=== PATIENT | male | born 1935 | race Caucasian/White ===

== ENCOUNTER 2019-02-03 09:44 | Emergency (ER) | payer MEDICARE, OTHER ==
[~2019-02-03] VITALS: Ht 170.2 cm; Wt 68.0 kg
[~2019-02-03 09:44] MED LIST: AMIO200T42 HOMEMEDPO; AMIO200T42 PO; ASPI-496 HOMEMEDPO; BENA1TAB10 PO; BENA40TA3 HOMEMEDPO; BIMA2.5D EACHEYE; BRIM5DRO2 EACHEYE; CALC200T3 HOMEMEDPO; DOCU-131 HOMEMEDPO; ESCI10TA10 PO; HYDR12.517 HOMEMEDPO; METO10TA82 HOMEMEDPO; METO25TA35 HOMEMEDPO; METO25TA35 PO; TAMS-11 PO; VICODIN PO
--- NOTE | 2019-02-03 10:15 | NUR ---
PT. IS A & O X 4 WITH C/O CONSTIPATION X 3 DAYS. PT. STATES HE TOOK DULCOLAX AND IT IS HELPING HIM. PT.'S ABD. IS SOFT AND ROUND WITH BS + X 4 QUADS. PT. IS PINK, WARM AND DRY. LUNGS ARE CTA. MM ARE MOIST WITH PULSES +2 THROUGHOUT. PT. IS RESTING WITH THE HOB ELEVATED AND THE SIDERAILS REMAIN UP X 2 WITH THE CALL LIGHT IN PLACE.
[2019-02-03 10:40] LABS: BASOPHILS % (AUTO) 0 % (0-1); EOSINOPHILS # (AUTO) 0.01 x10^3/uL (0-0.4); EOSINOPHILS % (AUTO) 0 % (1-7); LYMPHOCYTES # (AUTO) 2.48 x10^3/uL (1-3.4); LYMPHOCYTES % (AUTO) 29 % (22-44); MD NO; MEAN CORPUSCULAR HEMOGLOBIN 31.5 pg (27.5-34.5); MEAN CORPUSCULAR HGB CONC 33.8 g/dL (33.2-36.2); MEAN CORPUSCULAR VOLUME 93.3 fL (81-97); MEAN PLATELET VOLUME 8.2 fL (7.4-10.4); MONOCYTES # (AUTO) 0.38 x10^3/uL (0.2-0.8); MONOCYTES % (AUTO) 4 % (2-9); NEUTROPHILS # (AUTO) 5.68 x10^3/uL (1.8-6.8); NEUTROPHILS % (AUTO) 66 % (42-75); PLATELET COUNT 161 x10^3/uL (130-400); RED BLOOD COUNT 5.26 x10^6/uL (4.38-5.82); RED CELL DISTRIBUTION WIDTH 13.3 % (9.4-14.8)
[2019-02-03 10:50] LABS: ALANINE AMINOTRANSFERASE 26 U/L (12-78); ALBUMIN 3.7 g/dL (3.4-5.0); ANION GAP 7 mmol/L (5-15); CALCIUM 8.4 mg/dL (8.5-10.1); CHLORIDE 106 mmol/L (98-107); CREATININE 0.92 mg/dL (0.7-1.3)
[2019-02-03 10:53] LABS: ALKALINE PHOSPHATASE 66 U/L (45-117); BILIRUBIN,TOTAL 0.8 mg/dL (0.2-1.0); TOTAL PROTEIN 6.6 g/dL (6.4-8.2)
--- NOTE | 2019-02-03 11:11 | NUR ---
PT. IS RESTING WITHOUT CONCERNS. NO CHANGES AT THIS TIME.
--- NOTE | 2019-02-03 12:06 | NUR ---
PT. WAS GIVEN DISCHARGE INSTRUCTIONS WITH UNDERSTANDING VERBALIZED ALONG WITH WILLINGNESS TO COMPLY. PT. WAS AMBULATORY WITH A STEADY GAIT TO DISCHARGE. VSS.
[2019-02-03 12:14] VITALS: BP 131/79
== END 2019-02-03 12:18 | disposition home or self-care (01) ==
LOC: ED 12:02
DX: K59.00 Constipation, unspecified (principal); I10 Essential (primary) hypertension
CPT/HCPCS: 36415; 74021; 80053; 85025; 99283; 99284

== ENCOUNTER 2019-07-02 10:52 | Emergency (ER) | payer MEDICARE, OTHER ==
[~2019-07-02] VITALS: Ht 172.7 cm; Wt 58.0 kg
[~2019-07-02 10:52] MED LIST changes: +AMLO-150 PO; +AMLO10TA8 PO; +ESCI10TA PO; +ESZO3TAB28 PO; +LORA-446 PO; +POTA20TA6 PO; +TRAM50TA2 PO; +TRIA0.2576 PO
--- NOTE | 2019-07-02 11:15 | NUR ---
Patient ambulatory to room, slow steady gait. at bedside. Patient is uncomfortable and reports pain is unbearable causing him to not wantt o wake up. His is tearful. Reprots pain was controlled up until May after his surgery for SBO. Has an appointment on Friday with primary care.
[2019-07-02] MEDS ORDERED: SODIUM CHLORIDE FLUSH 10ML SYR IVF ONE (12:00)
[2019-07-02] MEDS ORDERED: KETOROLAC 30 MG/1 ML IVPush ONE (12:00)
[2019-07-02] MEDS ORDERED: DICYCLOMINE 10 MG/ML, 2ML IM ONE (12:00)
[2019-07-02] MEDS ORDERED: SODIUM CHLORIDE 0.9% 1,000ML IVBOLUS ONE (12:00)
[2019-07-02] MEDS ORDERED: KETOROLAC 30 MG/1 ML ONE (12:07)
[2019-07-02] MEDS ORDERED: DICYCLOMINE 10 MG/ML, 2ML ONE (12:07)
[2019-07-02 12:09] LABS: BASOPHILS # (AUTO) 0.03 x10^3/uL (0-0.1); BASOPHILS % (AUTO) 0 % (0-1); EOSINOPHILS # (AUTO) 0.03 x10^3/uL (0-0.4); EOSINOPHILS % (AUTO) 0 % (1-7); LYMPHOCYTES % (AUTO) 41 % (22-44); MD NO; MEAN CORPUSCULAR HEMOGLOBIN 31.5 pg (27.5-34.5); MEAN CORPUSCULAR HGB CONC 33.7 g/dL (33.2-36.2); MEAN CORPUSCULAR VOLUME 93.5 fL (81-97); MEAN PLATELET VOLUME 7.7 fL (7.4-10.4); MONOCYTES # (AUTO) 0.28 x10^3/uL (0.2-0.8); MONOCYTES % (AUTO) 4 % (2-9); NEUTROPHILS # (AUTO) 4.23 x10^3/uL (1.8-6.8); NEUTROPHILS % (AUTO) 55 % (42-75); PLATELET COUNT 238 x10^3/uL (130-400); RED BLOOD COUNT 4.99 x10^6/uL (4.38-5.82)
[2019-07-02 12:16] LABS: HCT (SEDRATE) 46.6 % (39.2-51.8)
[2019-07-02 12:22] LABS: ALANINE AMINOTRANSFERASE 18 U/L (12-78); ALBUMIN 3.6 g/dL (3.4-5.0); ANION GAP 6 mmol/L (5-15); CALCIUM 8.4 mg/dL (8.5-10.1); CHLORIDE 106 mmol/L (98-107); CREATININE 0.81 mg/dL (0.7-1.3)
[2019-07-02 12:27] LABS: ALKALINE PHOSPHATASE 60 U/L (45-117); BILIRUBIN,TOTAL 0.6 mg/dL (0.2-1.0); TOTAL PROTEIN 6.7 g/dL (6.4-8.2); TROPONIN I < 0.015 ng/mL (0.000-0.045)
--- NOTE | 2019-07-02 13:00 | NUR ---
pATIENT REPORTS FEELING ONLY A SMALL IMPROVEMENT WITH THE MEDICATION. IV INFUSING
[2019-07-02 13:39] LABS: MICROSCOPIC INDICATED
--- NOTE | 2019-07-02 13:43 | NUR ---
Patient discharged home, discharge instructions provided all questions and concerns addressed. IV dc'd cath intact. Discussed dietary intake to include the use of baby food and lactaid for milkshakes as tolerated by the patients. All patients belongings left with patient. NAD RR even and unlabored. Patient reports the pain has decreased especially in his abdomin. Ambulatory with steady gait.
[2019-07-02 13:45] VITALS: BP 149/71
[2019-07-02 13:47] LABS: CULTURE INDICATED? YES
== END 2019-07-02 13:47 | disposition home or self-care (01) ==
LOC: ED 12:17
DX: G89.29 Other chronic pain (principal); R10.84 Generalized abdominal pain; E78.5 Hyperlipidemia, unspecified; I10 Essential (primary) hypertension; Z85.46 Personal history of malignant neoplasm of prostate; R19.7 Diarrhea, unspecified
CPT/HCPCS: 36415; 74022; 80053; 81001; 83605; 83690; 83735; 84443; 84484; 85025; 85651; 87077; 87086; 87186; 93005; 96361; 96372; 96374; 99284; J0500; J1885; J7030

== ENCOUNTER 2019-07-11 13:06 | Inpatient (IN) | payer MEDICARE, OTHER ==
[~2019-07-11] VITALS: Ht 172.7 cm; Wt 61.3 kg
--- NOTE | 2019-07-11 13:45 | NUR ---
RN WENT INTO ROOM TO ASSESS PATIENT. PT SLEEPING ON GURNEY. RN TALKED TO AND ASKED WHAT HAPPENED TODAY. 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 STATED "I THINK HE DID THIS ON PURPOSE." RN ASSESSED PATIENT FOR SA. RN ASKED PT WHY HE TOOK ALL OF THOSE MEDICATIONS AT ONE TIME PT STATED "I JUST WANTED IT TO BE OVER WITH." RN ASKED PATIENT IF HE TRIED TO COMMIT SUICIDE PATIENT ADMITTED THAT IT WAS A SUICIDE ATTEMPT. RN INFORMED CHARGE NURSE AND MD. MD AND RN WENT INTO ROOM. MD ASSESSED PATIENT FOR SA. PT ADMITTED TO MD THAT HE TRIED TO COMMIT SUICIDE. MD TO INITIATE A LEGAL HOLD. POC WAS DISCUSSED WITH AND PT. PT STILL LETHARGIC FROM MEDICATIONS. RN TO MOVE PATIENT INTO A SI ROOM. PT'S PERSONAL BELONGINGS TO BE COLLECTED. SITTER TO BE REQUEST.
--- NOTE | 2019-07-11 14:03 | NUR ---
PERSONAL BELONGINGS COLLECTED AND PROVIDED TO . CREPING MACHINE OPERATOR REQUESTED FOR A SITTER.
[2019-07-11 14:08] LABS: BASOPHILS # (AUTO) 0.03 x10^3/uL (0-0.1); BASOPHILS % (AUTO) 0 % (0-1); EOSINOPHILS # (AUTO) 0.05 x10^3/uL (0-0.4); EOSINOPHILS % (AUTO) 1 % (1-7); LYMPHOCYTES % (AUTO) 41 % (22-44); MD NO; MEAN CORPUSCULAR HEMOGLOBIN 30.9 pg (27.5-34.5); MEAN CORPUSCULAR VOLUME 93.6 fL (81-97); MEAN PLATELET VOLUME 7.1 fL (7.4-10.4); MONOCYTES # (AUTO) 0.44 x10^3/uL (0.2-0.8); MONOCYTES % (AUTO) 6 % (2-9); NEUTROPHILS # (AUTO) 3.59 x10^3/uL (1.8-6.8); NEUTROPHILS % (AUTO) 52 % (42-75); PLATELET COUNT 181 x10^3/uL (130-400); RED BLOOD COUNT 4.78 x10^6/uL (4.38-5.82); RED CELL DISTRIBUTION WIDTH 12.9 % (9.4-14.8)
--- NOTE | 2019-07-11 14:11 | NUR ---
PT MOVED TO ROOM 1 VIA GURNEY. SUICIDE PRECAUTIONS IMPLEMENTED. POC WAS DISCUSSED WITH . VERBALIZED UNDERSTANDING.
[2019-07-11 14:18] LABS: ALBUMIN 3.2 g/dL (3.4-5.0); ANION GAP 6 mmol/L (5-15); CALCIUM 8.3 mg/dL (8.5-10.1); CHLORIDE 99 mmol/L (98-107)
[2019-07-11 14:22] LABS: ALANINE AMINOTRANSFERASE 15 U/L (12-78); ALKALINE PHOSPHATASE 53 U/L (45-117); BILIRUBIN,TOTAL 0.7 mg/dL (0.2-1.0); CREATININE 0.78 mg/dL (0.7-1.3)
[2019-07-11 14:26] LABS: SALICYLATE LEVEL < 1.7 mg/dL (2.8-20.0)
--- NOTE | 2019-07-11 15:07 | NUR ---
SITTER OUTSIDE OF BEDSIDE MONITORING PT.
[2019-07-11] MEDS ORDERED: SODIUM CHLORIDE FLUSH 10ML SYR IVF ONE (16:00)
--- NOTE | 2019-07-11 16:12 | NUR ---
PIV ACCESS OBTAINED, 22 R FA. URINE SAMPLE OBTAINED BY SC PER ERMD ORDERS. PT SELF CATH'S SELF 4X DAILY. 16FR NEEDED PER 'S REPORT.
--- NOTE | 2019-07-11 16:26 | NUR ---
TP RN: MESSAGE LEFT PER ERP REQUESTING FOUNDRY MELT SUPERVISOR CONSULT FOR THIS PT.
[2019-07-11 16:30] LABS: AMPHETAMINE SCREEN, URINE Negative (Negative); BARBITURATE SCREEN, URINE Negative (Negative); BENZODIAZEPINE SCREEN, URINE Positive (Negative); CANNABINOID SCREEN, URINE Negative (Negative); COCAINE SCREEN, URINE Negative (Negative); METHADONE SCREEN, URINE Negative (Negative); OPIATE SCREEN, URINE Positive (Negative)
[2019-07-11] MEDS ORDERED: ACETAMINOPHEN 325 MG TABLET PO PRN (16:30)
--- NOTE | 2019-07-11 16:34 | NUR ---
REPORT TO KOBE HANSEN. ROOM NOT CLEANED. TYRONE TO CALL WHEN ROOM IS CLEANED.
[2019-07-11] MEDS ORDERED: ENOXAPARIN 40 MG/0.4 ML ONE (16:53)
[2019-07-11] MEDS: SODIUM CHLORIDE 0.9% 1,000 ML IV SCH (16:56)
[2019-07-11] MEDS: ENOXAPARIN 40 MG/0.4 ML SQ SCH (16:56)
[2019-07-11] MEDS ORDERED: OXYcodone/APAP 5/325MG TABLET ONE (17:02)
[2019-07-11] MEDS: OXYcodone/APAP 5/325MG TABLET PO PRN (17:03)
--- NOTE | 2019-07-11 17:05 | NUR ---
MEDICATION ADMINISTERED PER EMAR FOR 04/08 ABD PAIN. PT ABLE TO SWALLOW WATER AND PILL WHOLE WITHOUT ANY DIFFITCULTY. AWAITING ROOM TO BE READY. RN OFFERED PT FOOD BUT PT STATED HE "IS NOT HUNGRY" AT THIS TIME. RN TO CONTINUE TO MONITOR.
--- NOTE | 2019-07-11 17:31 | NUR ---
PT ASLEEP ON GURNEY AFTER ADMINISTRATION OF PERCOCET FOR ABD PAIN. RR EVEN AND UNLABORED.
--- NOTE | 2019-07-11 17:42 | NUR ---
RN WENT TO ASSESS PIV WITH FLUIDS RUNNING. RN NOTICED THAT PIV HAS INFILTRATED. RN REMOVED IV WITH TIP INTACT. RN APPLIED PRESSURE AND WRAPPED R ARM WITH A WARM BLANKET. RN ENCOURAGED PT TO ELEVATE ON. RN ESTABLISHED A NEW PIV, 22 L FA. FLUIDS RUNNING PER EMAR.
[2019-07-11 19:59] VITALS: BP 129/74
[2019-07-11 20:39] VITALS: BP 129/74
[2019-07-11] MEDS ORDERED: TEMPLATE NON-FORMULARY MED. (Brimonidine Tartrate/Timolol (Combigan Eye Drops) 1 DROP) EACHEYE SCH (21:00)
[2019-07-11] MEDS: DOCUSATE 100 MG CAPSULE PO SCH (21:10)
[2019-07-11] MEDS: ZOLPIDEM 5MG TABLET PO SCH (21:10)
[2019-07-11] MEDS: LATANOPROST OPHTH 0.005%, 2.5ML EACHEYE SCH (21:14)
[2019-07-11] MEDS: BRIMONIDINE TART. OPHTH 0.2%, 5ML OP SCH (21:15)
[2019-07-11] MEDS: TIMOLOL OPHTH 0.5%, 5ML OP SCH (21:15)
[2019-07-11] MEDS: morphine SULFATE 10 MG/ML, 1ML IVPush PRN (21:15)
[2019-07-12] MEDS: OXYcodone/APAP 5/325MG TABLET PO PRN ×3 (01:36→23:37)
[2019-07-12] MEDS: SODIUM CHLORIDE 0.9% 1,000 ML IV SCH ×3 (01:38→21:46)
[2019-07-12 01:42] VITALS: BP 120/77
[2019-07-12 04:41] LABS: BASOPHILS # (AUTO) 0.02 x10^3/uL (0-0.1); BASOPHILS % (AUTO) 0 % (0-1); EOSINOPHILS # (AUTO) 0.06 x10^3/uL (0-0.4); EOSINOPHILS % (AUTO) 1 % (1-7); LYMPHOCYTES # (AUTO) 2.32 x10^3/uL (1-3.4); LYMPHOCYTES % (AUTO) 32 % (22-44); MD NO; MEAN CORPUSCULAR HEMOGLOBIN 31.4 pg (27.5-34.5); MEAN CORPUSCULAR HGB CONC 33.4 g/dL (33.2-36.2); MEAN PLATELET VOLUME 7.6 fL (7.4-10.4); MONOCYTES # (AUTO) 0.45 x10^3/uL (0.2-0.8); MONOCYTES % (AUTO) 6 % (2-9); NEUTROPHILS # (AUTO) 4.31 x10^3/uL (1.8-6.8); NEUTROPHILS % (AUTO) 60 % (42-75); PLATELET COUNT 170 x10^3/uL (130-400); RED BLOOD COUNT 4.63 x10^6/uL (4.38-5.82); RED CELL DISTRIBUTION WIDTH 13.2 % (9.4-14.8)
[2019-07-12 04:51] LABS: ANION GAP 5 mmol/L (5-15); CALCIUM 7.9 mg/dL (8.5-10.1); CHLORIDE 103 mmol/L (98-107)
[2019-07-12 04:53] LABS: CREATININE 0.66 mg/dL (0.7-1.3)
[2019-07-12] MEDS: morphine SULFATE 10 MG/ML, 1ML IVPush PRN (06:34)
[2019-07-12 06:58] VITALS: BP 145/74
[2019-07-12] MEDS ORDERED: KETOROLAC 30 MG/1 ML IVPush ONE (10:30)
[2019-07-12] MEDS: AMLODIPINE 10 MG TAB PO SCH (10:53)
[2019-07-12] MEDS: ESCITALOPRAM 10MG TABLET PO SCH (10:53)
[2019-07-12] MEDS: DOCUSATE 100 MG CAPSULE PO SCH ×2 (10:53→20:14)
[2019-07-12] MEDS: TAMSULOSIN 0.4 MG CAP.ER.24H PO SCH (10:53)
[2019-07-12] MEDS: POLYETHYLENE GLYCOL 17 GM PACKET NG SCH (10:54)
[2019-07-12] MEDS: BENAZEPRIL 20 MG TABLET PO SCH (10:54)
[2019-07-12] MEDS: HYDROCHLOROTHIAZIDE 12.5 MG CAPSULE PO SCH (10:54)
[2019-07-12] MEDS: BRIMONIDINE TART. OPHTH 0.2%, 5ML OP SCH ×2 (10:58→20:14)
[2019-07-12] MEDS: TIMOLOL OPHTH 0.5%, 5ML OP SCH ×2 (10:58→20:14)
[2019-07-12 12:32] VITALS: BP 152/69
[2019-07-12] MEDS: ENOXAPARIN 40 MG/0.4 ML SQ SCH (16:30)
[2019-07-12 19:48] VITALS: BP 116/67
[2019-07-12] MEDS: LATANOPROST OPHTH 0.005%, 2.5ML EACHEYE SCH (20:14)
[2019-07-12] MEDS: ZOLPIDEM 5MG TABLET PO SCH (20:14)
[2019-07-13 03:01] VITALS: BP 121/69
[2019-07-13] MEDS: OXYcodone/APAP 5/325MG TABLET PO PRN ×2 (04:58→12:17)
[2019-07-13 05:11] LABS: ANION GAP 6 mmol/L (5-15); CHLORIDE 105 mmol/L (98-107); CREATININE 0.54 mg/dL (0.7-1.3)
[2019-07-13] MEDS: SODIUM CHLORIDE 0.9% 1,000 ML IV SCH (06:38)
[2019-07-13 07:03] VITALS: BP 134/82
[2019-07-13] MEDS: POLYETHYLENE GLYCOL 17 GM PACKET NG SCH (09:34)
[2019-07-13] MEDS: BENAZEPRIL 20 MG TABLET PO SCH (09:35)
[2019-07-13] MEDS: AMLODIPINE 10 MG TAB PO SCH (09:35)
[2019-07-13] MEDS: TAMSULOSIN 0.4 MG CAP.ER.24H PO SCH (09:35)
[2019-07-13] MEDS: HYDROCHLOROTHIAZIDE 12.5 MG CAPSULE PO SCH (09:35)
[2019-07-13] MEDS: DOCUSATE 100 MG CAPSULE PO SCH (09:35)
[2019-07-13] MEDS: ESCITALOPRAM 10MG TABLET PO SCH (09:36)
[2019-07-13] MEDS: BRIMONIDINE TART. OPHTH 0.2%, 5ML OP SCH (09:36)
[2019-07-13] MEDS: TIMOLOL OPHTH 0.5%, 5ML OP SCH (09:37)
[2019-07-13] MEDS ORDERED: LACTULOSE 10 GM/15 ML UDC PO PRN (10:30)
[2019-07-13] MEDS ORDERED: POTASSIUM CHLORIDE 20 MEQ TAB.ER.PRT PO SCH (11:00)
[2019-07-13 12:42] VITALS: BP 120/72
[2019-07-13] MEDS ORDERED: DOCU100C33 PO (16:52)
[2019-07-13] MEDS ORDERED: POLY17PO5 NG (16:52)
[2019-07-13] MEDS ORDERED: OXYcodone/APAP 5/325MG PO (16:52)
[2019-07-13] MEDS ORDERED: LACT10SO24 PO (16:52)
== END 2019-07-13 17:09 | disposition home or self-care (01) | DRG 917 ==
LOC: ED 14:04 → EDIP 15:57 → 4NW 17:54
PROVIDERS: ADMIT Internal Medicine Infectious Disease; ATTEND Hospitalist
DX: T50.912A Poisoning by multiple unspecified drugs, medicaments and biological substances, intentional self-harm, initial encounter (principal); E43 Unspecified severe protein-calorie malnutrition; R45.851 Suicidal ideations; C91.11 Chronic lymphocytic leukemia of B-cell type in remission; F33.2 Major depressive disorder, recurrent severe without psychotic features; G89.29 Other chronic pain; E87.6 Hypokalemia; N40.0 Benign prostatic hyperplasia without lower urinary tract symptoms; I10 Essential (primary) hypertension; F41.9 Anxiety disorder, unspecified; I48.0 Paroxysmal atrial fibrillation; Z66 Do not resuscitate; Z68.20 Body mass index [BMI] 20.0-20.9, adult; Z85.46 Personal history of malignant neoplasm of prostate
CPT/HCPCS: 36415; 70450; 74018; 80048; 80053; 80307; 82533; 85025; 93005; G0378; J1650; J1885; J2270; J7030

== ENCOUNTER 2019-07-13 13:17 | Inpatient (IN) | payer MEDICARE, OTHER ==
[~2019-07-13] VITALS: Ht 175.3 cm; Wt 61.1 kg
[2019-07-13] MEDS ORDERED: ONDANSETRON ODT 4 MG PO PRN (14:00)
[2019-07-13] MEDS ORDERED: BISACODYL 10 MG SUPP PR PRN (14:00)
[2019-07-13] MEDS ORDERED: LACT10SO24 PO (16:52)
[2019-07-13] MEDS ORDERED: OXYcodone/APAP 5/325MG PO (16:52)
[2019-07-13] MEDS ORDERED: POLY17PO5 NG (16:52)
[2019-07-13] MEDS ORDERED: DOCU100C33 PO (16:52)
[2019-07-13] MEDS ORDERED: PLEASE ENTER HEIGHT AND WEIGHT MC SCH (17:30)
[2019-07-13 18:45] VITALS: BP 109/67
[2019-07-13 19:31] VITALS: BP 131/73
[2019-07-13] MEDS ORDERED: ZOLPIDEM 10MG TABLET PO PRN (20:30)
[2019-07-13] MEDS ORDERED: ZOLPIDEM 5MG TABLET ONE (20:42)
[2019-07-13] MEDS: ACETAMINOPHEN 325 MG TABLET PO PRN (21:50)
[2019-07-14] MEDS: ACETAMINOPHEN 325 MG TABLET PO PRN ×2 (05:09→21:42)
[2019-07-14 07:38] VITALS: BP 114/74
[2019-07-14] MEDS: DOCUSATE 100 MG CAPSULE PO PRN (08:26)
[2019-07-14] MEDS: POLYETHYLENE GLYCOL 17 GM PACKET PO PRN (08:26)
[2019-07-14 13:08] LABS: FREE T4 (FREE THYROXINE) 1.4 ng/dL (0.76-1.46); LDL/HDL RATIO 2.3 (0.5-3.0)
[2019-07-14] MEDS: PSYLLIUM PACKET PO SCH (14:35)
[2019-07-14] MEDS: LACTOBACILLUS 1GM/ PACKET PO SCH ×2 (17:53→21:42)
[2019-07-14 19:22] VITALS: BP 141/74
[2019-07-14] MEDS: ESCITALOPRAM 10MG TABLET PO SCH (21:42)
[2019-07-15] MEDS: ACETAMINOPHEN 325 MG TABLET PO PRN (04:49)
[2019-07-15 07:28] VITALS: BP 128/75
[2019-07-15] MEDS: POLYETHYLENE GLYCOL 17 GM PACKET PO PRN (08:17)
[2019-07-15] MEDS: LACTOBACILLUS 1GM/ PACKET PO SCH ×3 (08:17→21:32)
[2019-07-15] MEDS: PSYLLIUM PACKET PO SCH (08:17)
[2019-07-15] MEDS: DOCUSATE 100 MG CAPSULE PO PRN (08:18)
[2019-07-15] MEDS ORDERED: TIMO5TAB EACHEYE (11:13)
[2019-07-15] MEDS: BRIMONIDINE TART. OPHTH 0.2%, 5ML EACHEYE SCH ×2 (11:38→21:28)
[2019-07-15 19:40] VITALS: BP 118/70
[2019-07-15] MEDS: LATANOPROST OPHTH 0.005%, 2.5ML EACHEYE SCH (21:28)
[2019-07-15] MEDS: [UNRECOGNIZED DRUG - OTHER] PO SCH (21:32)
[2019-07-15] MEDS: ESCITALOPRAM 10MG TABLET PO SCH (21:32)
[2019-07-15] MEDS: ESZOPICLONE PO SCH (21:32)
[2019-07-16 07:10] VITALS: BP 158/83
[2019-07-16] MEDS: LACTOBACILLUS 1GM/ PACKET PO SCH ×3 (08:35→21:09)
[2019-07-16] MEDS: PSYLLIUM PACKET PO SCH (08:35)
[2019-07-16] MEDS: BRIMONIDINE TART. OPHTH 0.2%, 5ML EACHEYE SCH ×2 (08:35→21:08)
[2019-07-16] MEDS: DOCUSATE 100 MG CAPSULE PO PRN (08:36)
[2019-07-16] MEDS: POLYETHYLENE GLYCOL 17 GM PACKET PO PRN (08:36)
[2019-07-16 11:09] VITALS: BP 121/70
[2019-07-16 19:06] VITALS: BP 144/77
[2019-07-16] MEDS: [UNRECOGNIZED DRUG - OTHER] PO SCH (21:00)
[2019-07-16] MEDS: ESCITALOPRAM 10MG TABLET PO SCH (21:00)
[2019-07-16] MEDS: ESZOPICLONE PO SCH (21:00)
[2019-07-16] MEDS: LATANOPROST OPHTH 0.005%, 2.5ML EACHEYE SCH (21:08)
[2019-07-17 07:13] VITALS: BP 133/76
[2019-07-17] MEDS: POLYETHYLENE GLYCOL 17 GM PACKET PO PRN (08:39)
[2019-07-17] MEDS: DOCUSATE 100 MG CAPSULE PO PRN (08:40)
[2019-07-17] MEDS: BRIMONIDINE TART. OPHTH 0.2%, 5ML EACHEYE SCH ×2 (08:40→21:18)
[2019-07-17] MEDS: PSYLLIUM PACKET PO SCH (08:40)
[2019-07-17] MEDS: LACTOBACILLUS 1GM/ PACKET PO SCH ×3 (08:40→21:18)
[2019-07-17 15:54] VITALS: BP 146/73
[2019-07-17 19:10] VITALS: BP 134/72
[2019-07-17] MEDS: ESCITALOPRAM 10MG TABLET PO SCH (21:00)
[2019-07-17] MEDS: ESZOPICLONE PO SCH (21:00)
[2019-07-17] MEDS: [UNRECOGNIZED DRUG - OTHER] PO SCH (21:00)
[2019-07-17] MEDS: LATANOPROST OPHTH 0.005%, 2.5ML EACHEYE SCH (21:18)
[2019-07-18 07:27] VITALS: BP 123/70
[2019-07-18] MEDS: BRIMONIDINE TART. OPHTH 0.2%, 5ML EACHEYE SCH ×2 (08:54→22:38)
[2019-07-18] MEDS: AMLODIPINE 5 MG TABLET PO SCH (08:55)
[2019-07-18] MEDS: DOCUSATE 100 MG CAPSULE PO PRN (08:55)
[2019-07-18] MEDS: LACTOBACILLUS 1GM/ PACKET PO SCH ×3 (08:56→22:41)
[2019-07-18] MEDS: POLYETHYLENE GLYCOL 17 GM PACKET PO PRN (08:56)
[2019-07-18] MEDS: PSYLLIUM PACKET PO SCH (08:57)
[2019-07-18] MEDS ORDERED: ESCI10TA PO (15:07)
[2019-07-18 19:49] VITALS: BP 146/78
[2019-07-18] MEDS: [UNRECOGNIZED DRUG - OTHER] PO SCH (21:00)
[2019-07-18] MEDS: ESZOPICLONE PO SCH (21:00)
[2019-07-18] MEDS: LATANOPROST OPHTH 0.005%, 2.5ML EACHEYE SCH (22:38)
[2019-07-18] MEDS: ESCITALOPRAM 10MG TABLET PO SCH (22:39)
[2019-07-19 07:51] VITALS: BP 129/65
[2019-07-19] MEDS: POLYETHYLENE GLYCOL 17 GM PACKET PO PRN (08:18)
[2019-07-19] MEDS: LACTOBACILLUS 1GM/ PACKET PO SCH (08:18)
[2019-07-19] MEDS: PSYLLIUM PACKET PO SCH (08:18)
[2019-07-19] MEDS: DOCUSATE 100 MG CAPSULE PO PRN (08:19)
[2019-07-19] MEDS: BRIMONIDINE TART. OPHTH 0.2%, 5ML EACHEYE SCH (08:20)
[2019-07-19] MEDS: AMLODIPINE 5 MG TABLET PO SCH (08:20)
== END 2019-07-19 10:40 | disposition home or self-care (01) | DRG 885 ==
LOC: 3E 17:13
PROVIDERS: ADMIT Psychiatry & Neurology Psychosomatic Medicine; ATTEND Psychiatry & Neurology Psychosomatic Medicine
DX: F33.2 Major depressive disorder, recurrent severe without psychotic features (principal); C91.11 Chronic lymphocytic leukemia of B-cell type in remission; I48.0 Paroxysmal atrial fibrillation; G47.00 Insomnia, unspecified; H40.9 Unspecified glaucoma; I10 Essential (primary) hypertension; K59.00 Constipation, unspecified; Z79.899 Other long term (current) drug therapy; Z91.5 Personal history of self-harm; Z93.3 Colostomy status
CPT/HCPCS: 36415; 80061; 82607; 84439; 84443; 86592

== ENCOUNTER 2019-07-25 14:37 | Emergency (ER) | payer MEDICARE, OTHER ==
[~2019-07-25] VITALS: Ht 172.7 cm; Wt 60.5 kg
[~2019-07-25 14:37] MED LIST changes: +DOCU100C33 PO; +LACT10SO24 PO; +OXYcodone/APAP 5/325MG PO; +POLY17PO5 NG; +TIMO5TAB EACHEYE
--- NOTE | 2019-07-25 15:01 | NUR ---
83Y M THAT COMES IN W/ C/O CONSTIPATION. LAST BM LAST NIGHT. PT REPORTS BOWEL SX MAY 18, 2019 FOR BOWEL OBS. PT REPORTS FEELINGS OF INCREASED PRESSURE AND UNABLE TO HAVE BM. PT MENTIONED "SOME EKGS HAVE SHOWN AFIB BUT ONLY ERROR". PT CONNECTED TO ALL MONITORING VSS CALL LIGHT IN REACH
[2019-07-25] MEDS ORDERED: SODIUM CHLORIDE FLUSH 10ML SYR IVF ONE (15:30)
--- NOTE | 2019-07-25 15:30 | NUR ---
PT TO XRAY AT THIS TIME
[2019-07-25 15:50] LABS: BASOPHILS # (AUTO) 0.03 x10^3/uL (0-0.1); BASOPHILS % (AUTO) 1 % (0-1); EOSINOPHILS # (AUTO) 0.02 x10^3/uL (0-0.4); EOSINOPHILS % (AUTO) 0 % (1-7); LYMPHOCYTES # (AUTO) 2.55 x10^3/uL (1-3.4); LYMPHOCYTES % (AUTO) 36 % (22-44); MD NO; MEAN CORPUSCULAR HEMOGLOBIN 31.1 pg (27.5-34.5); MEAN CORPUSCULAR HGB CONC 33.7 g/dL (33.2-36.2); MEAN CORPUSCULAR VOLUME 92.4 fL (81-97); MEAN PLATELET VOLUME 7.3 fL (7.4-10.4); MONOCYTES # (AUTO) 0.45 x10^3/uL (0.2-0.8); MONOCYTES % (AUTO) 6 % (2-9); NEUTROPHILS # (AUTO) 4.06 x10^3/uL (1.8-6.8); NEUTROPHILS % (AUTO) 57 % (42-75); PLATELET COUNT 198 x10^3/uL (130-400); RED BLOOD COUNT 4.76 x10^6/uL (4.38-5.82); RED CELL DISTRIBUTION WIDTH 13.7 % (9.4-14.8)
[2019-07-25 15:57] LABS: ALANINE AMINOTRANSFERASE 24 U/L (12-78); ALBUMIN 3.5 g/dL (3.4-5.0); ANION GAP 5 mmol/L (5-15); CALCIUM 8.1 mg/dL (8.5-10.1); CHLORIDE 107 mmol/L (98-107); CREATININE 0.75 mg/dL (0.7-1.3)
[2019-07-25 15:59] LABS: ALKALINE PHOSPHATASE 58 U/L (45-117); BILIRUBIN,TOTAL 0.7 mg/dL (0.2-1.0); TOTAL PROTEIN 6.5 g/dL (6.4-8.2)
[2019-07-25 16:15] VITALS: BP 151/78
--- NOTE | 2019-07-25 16:20 | NUR ---
UA SENT TO LAB.
[2019-07-25 16:43] LABS: MICROSCOPIC NOT IND
[2019-07-25 16:51] LABS: CULTURE INDICATED? NO
== END 2019-07-25 17:15 | disposition home or self-care (01) ==
LOC: ED 15:13
DX: R10.84 Generalized abdominal pain (principal); I10 Essential (primary) hypertension; E78.5 Hyperlipidemia, unspecified; F32.9 Major depressive disorder, single episode, unspecified; N40.0 Benign prostatic hyperplasia without lower urinary tract symptoms; Z85.46 Personal history of malignant neoplasm of prostate
CPT/HCPCS: 36415; 74022; 80053; 81003; 83690; 85025; 93005; 99284

== ENCOUNTER 2019-08-09 16:49 | Emergency (ER) | payer MEDICARE, OTHER ==
[~2019-08-09] VITALS: Ht 172.7 cm; Wt 58.0 kg
[2019-08-09 17:33] VITALS: BP 154/86
== END 2019-08-09 17:55 | disposition home or self-care (01) ==
LOC: ED 17:04
DX: G89.29 Other chronic pain (principal); R10.84 Generalized abdominal pain; I10 Essential (primary) hypertension; F32.9 Major depressive disorder, single episode, unspecified
CPT/HCPCS: 99283

== ENCOUNTER 2020-12-23 18:53 | Emergency (ER) | payer MEDICARE, OTHER ==
[~2020-12-23] VITALS: Ht 172.7 cm; Wt 67.6 kg
[~2020-12-23 18:53] MED LIST changes: +AMLO-211 PO; -AMLO10TA8 PO; -ESCI10TA PO; +ESCI10TA97 PO
--- NOTE | 2020-12-23 19:21 | NUR ---
PT BROUGHT BACK TO ROOM FROM TRIAGE VIA WHEELCHAIR. PT STATED THAT OVER THE PAST COUPLE DAYS HE HAS BEEN FEELING VERY WEAK AND DIZZY. PT STATED THAT HIS BLOOD PRESSURE AT HOME HAS BEEN LOWER THAN USUAL AND HAS STILL BEEN TAKING HIS BP MEDICATIONS. PT STATED THAT HIS BLOOD PRESSURE AT HOME WAS 95/55. 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 PT DENIES ANY CP, FEVER, SOB, NAUSEA, VOMITING OR DIARRHEA.
[2020-12-23] MEDS ORDERED: SODIUM CHLORIDE 0.9% 1,000ML IVBOLUS ONE (20:00)
[2020-12-23] MEDS ORDERED: SODIUM CHLORIDE FLUSH 10ML SYR IVF ONE (20:00)
[2020-12-23 20:28] LABS: MEAN CORPUSCULAR HEMOGLOBIN 29.2 pg (27.5-34.5); MEAN CORPUSCULAR HGB CONC 33.8 g/dL (33.2-36.2); MEAN PLATELET VOLUME 7.8 fL (7.4-10.4); PLATELET COUNT 221 x10^3/uL (130-400); RED BLOOD COUNT 5.23 x10^6/uL (4.38-5.82); RED CELL DISTRIBUTION WIDTH 14.5 % (9.4-14.8)
[2020-12-23 20:33] LABS: ALANINE AMINOTRANSFERASE 23 U/L (12-78); ALBUMIN 3.3 g/dL (3.4-5.0); ANION GAP 7 mmol/L (5-15); CALCIUM 8.7 mg/dL (8.5-10.1); CHLORIDE 101 mmol/L (98-107); CREATININE 1.04 mg/dL (0.7-1.3)
[2020-12-23 20:36] LABS: ALKALINE PHOSPHATASE 97 U/L (45-117); BILIRUBIN,TOTAL 0.4 mg/dL (0.2-1.0); TOTAL PROTEIN 7.1 g/dL (6.4-8.2)
[2020-12-23 20:55] LABS: MD YES
[2020-12-23] MEDS ORDERED: POTASSIUM CHLORIDE 10% 40 MEQ/30 ML UDC PO ONE (21:00)
[2020-12-23] MEDS ORDERED: MAGNESIUM SULFATE 1 GM in SODIUM CHLORIDE 0.9% 50 ML IV ONE (21:00)
[2020-12-23 21:02] LABS: BAND#(MANUAL) 0.21 x10^3/uL; BANDS%(MANUAL) 2 % (0-7); BASOS% (MANUAL) 1 % (0-1); EOS% (MANUAL) 1 % (1-7); LYMPH#(MANUAL) 3.02 x10^3/uL (1-3.4); LYMPHS% (MANUAL) 29 % (22-44); MONOS#(MANUAL) 0.21 x10^3/uL (0.3-2.7); MONOS% (MANUAL) 2 % (2-9); REACTIVE LYMPHS # (MANUAL) 1.66 x10^3/uL (0-0); REACTIVE LYMPHS % (MANUAL) 16 % (0-0); SEGS% (MANUAL) 49 % (42-75)
[2020-12-23 21:03] LABS: ANISOCYTOSIS 1+
[2020-12-23 21:04] LABS: <PLATELET ESTIMATE> ADEQUATE; <PLT MORPHOLOGY> NORMAL PLT MORPH
--- NOTE | 2020-12-23 21:12 | NUR ---
REPORT GIVEN TO KOBE PATEL
[2020-12-23] MEDS ORDERED: POTASSIUM CHLORIDE 20 MEQ PACKET ONE (21:15)
--- NOTE | 2020-12-23 21:30 | NUR ---
RECEIVED REPORT AND ASSUMED PT. CARE. PT. IS RESTING WITH THE CP MONITOR IN PLACE. NS IS INFUSING ORDERED, PT.'S MAG IS INFUSING ON THE PUMP. THE PT. HAS THE HOB ELEVATED GREATER THAN 30 DEGREES [address] FOR WARMTH[address] NO CONCERNS AT THIS TIME.
--- NOTE | 2020-12-23 23:06 | NUR ---
THE PT.'S INFUSIONS ARE COMPLETE AND HE REPORTS FEELING BETTER THE PT. WAS GIVEN DISCHARGE INSTRUCTIONS WITH UNDERSTANDING VERBALIZED ALONG WITH WILLINGNESS TO COMPLY. PT.'S IV WAS DCD',CATH TIP INTACT. PRESSURE HELD WITH HEMOSTASIS ACHIEVED. PT. WAS AMBULATORY WITH A STREADY GAIT TO THE DISCHARGE DESK. PT.'S IS WITH HIM.
[2020-12-23 23:08] VITALS: BP 135/68
== END 2020-12-23 23:10 | disposition home or self-care (01) ==
LOC: ED 22:35
DX: R42 Dizziness and giddiness (principal); E86.0 Dehydration; E87.6 Hypokalemia; R55 Syncope and collapse; I10 Essential (primary) hypertension; Z85.46 Personal history of malignant neoplasm of prostate
CPT/HCPCS: 36415; 80053; 83690; 85025; 93005; 96361; 96365; 96366; 99284; J3475; J7030

== ENCOUNTER 2021-01-03 14:19 | Emergency (ER) | payer MEDICARE, OTHER ==
[~2021-01-03] VITALS: Ht 172.7 cm; Wt 66.6 kg
--- NOTE | 2021-01-03 14:55 | NUR ---
PT AMBULATORY TO ROOM 12 W/ C/O ABD PAIN, DISTENTION. PT STATES HE HAS FELT FULL, FULL OF GAS, NAUSEA. DENIES EMESIS. +BLOATING. NOT PASSING GAS. LBM 3 DAYS AGO "[place]" NO NORMAL BM X 1 WEEK. PT HAS EXTENSIVE HX SBO. LAST SBO SEP 2019 WAS MONITORED AT THE [facility] AND DID NOT NEED SURGERY. HAD SBO AT [facility] IN 2018 AND THAT WAS LAST TIME PT HAD SURGERY. PT RESTING ON GURNEY. NADN. MONITORS APPLIED. VSS. WARM BLANKET PROVIDED. ERP DR. BANGURA AT BEDSIDE FOR EVAL.
[2021-01-03 15:48] VITALS: BP 126/65
== END 2021-01-03 16:01 | disposition home or self-care (01) ==
LOC: ED 15:45
DX: K59.00 Constipation, unspecified (principal); R10.84 Generalized abdominal pain; R11.0 Nausea; I10 Essential (primary) hypertension; E78.5 Hyperlipidemia, unspecified; Z85.46 Personal history of malignant neoplasm of prostate
CPT/HCPCS: 74021; 99283

== ENCOUNTER 2021-01-10 12:16 | Emergency (ER) | payer MEDICARE, OTHER ==
[~2021-01-10] VITALS: Ht 172.7 cm; Wt 65.0 kg
--- NOTE | 2021-01-10 12:25 | NUR ---
operations lead: EKG done in triage
--- NOTE | 2021-01-10 12:58 | NUR ---
REVIEW OF TRIAGE, ASSUME CARE OF PT AT THIS TIME.
--- NOTE | 2021-01-10 13:16 | NUR ---
PT AND FAMILY UPDATED ON POC. PT STATES HE CATHS FOR URINE, CATHETER AND SUPPLIES NEEDED. PT STATES HE WILL USE OWN CATHETER. AT BS. CALL LIGHT WITHIN REACH.
[2021-01-10 13:19] LABS: BASOPHILS % (AUTO) 0 % (0-1); EOSINOPHILS % (AUTO) 0 % (1-7); LYMPHOCYTES % (AUTO) 36 % (22-44); MEAN CORPUSCULAR HEMOGLOBIN 29.1 pg (27.5-34.5); MEAN CORPUSCULAR HGB CONC 33.7 g/dL (33.2-36.2); MEAN PLATELET VOLUME 7.6 fL (7.4-10.4); MONOCYTES % (AUTO) 4 % (2-9); NEUTROPHILS % (AUTO) 60 % (42-75); PLATELET COUNT 198 x10^3/uL (130-400); RED BLOOD COUNT 5.13 x10^6/uL (4.38-5.82); RED CELL DISTRIBUTION WIDTH 14.8 % (9.4-14.8)
[2021-01-10 13:20] LABS: MD NO
[2021-01-10 13:33] LABS: ALANINE AMINOTRANSFERASE 33 U/L (12-78); ALBUMIN 3.4 g/dL (3.4-5.0); ANION GAP 7 mmol/L (5-15); CALCIUM 8.6 mg/dL (8.5-10.1); CHLORIDE 104 mmol/L (98-107); CREATININE 0.95 mg/dL (0.7-1.3)
--- NOTE | 2021-01-10 13:35 | NUR ---
URINE COLLECTED/SENT TO LAB.
[2021-01-10 13:37] LABS: ALKALINE PHOSPHATASE 93 U/L (45-117); BILIRUBIN,TOTAL 0.5 mg/dL (0.2-1.0); TOTAL PROTEIN 6.9 g/dL (6.4-8.2); TROPONIN I < 0.015 ng/mL (0.000-0.045)
--- NOTE | 2021-01-10 13:38 | NUR ---
PT TO CT.
[2021-01-10 14:01] LABS: MICROSCOPIC INDICATED
--- NOTE | 2021-01-10 14:25 | NUR ---
ALL RESULTS BACK, PT FOR RECHECK. VSS/UPDATED IN COMPUTER.
[2021-01-10] MEDS ORDERED: SODIUM CHLORIDE 0.9% 1,000ML IVBOLUS ONE (15:00)
[2021-01-10] MEDS ORDERED: SODIUM CHLORIDE FLUSH 10ML SYR IVF ONE (15:00)
--- NOTE | 2021-01-10 15:11 | NUR ---
TASK RN: PIV STARTED, IVF INFUSING PER EMAR. VSS, ARY.
--- NOTE | 2021-01-10 16:18 | NUR ---
[phone] salcido client support professional for dr roberts. [id number] dr salcido returned call and spoke with dr king
[2021-01-10 17:16] VITALS: BP 133/80
== END 2021-01-10 17:42 | disposition home or self-care (01) ==
LOC: ED 12:18
DX: R42 Dizziness and giddiness (principal); R55 Syncope and collapse; R51.9 Headache, unspecified; R06.89 Other abnormalities of breathing; I10 Essential (primary) hypertension; E78.5 Hyperlipidemia, unspecified; Z85.46 Personal history of malignant neoplasm of prostate
CPT/HCPCS: 36415; 70450; 71045; 80053; 81001; 84484; 85025; 87077; 87086; 93005; 99285; J7030